=== PATIENT | male | born 2000 | race Caucasian/White ===

== ENCOUNTER 2022-10-17 21:14 | Emergency (ER) | payer BC, SELFPAY ==
[2022-10-17 21:15] VITALS: BP 152/72; PULSE 94; RESP 18; TEMP 36.6; O2SAT 99; BMI 29.5
--- NOTE | 2022-10-17 21:53 | EX.ED.UPPERE ---
HPI History of Present Illness HPI Narrative: Left long finger laceration. Occurred about 4 hours ago. Tetanus up-to-date. Chief Complaint: Laceration Informant: patient and spouse/S.O. Occured/Mechanism Mechanism/Context: Yes injury Onset/Context/Timing Onset: Today and Hours Context: Sudden Onset Timing: Continuous Quality of Pain: Dull Current Severity: Mild Maximum Severity: Mild Associated Symptoms Associated Symptoms: Negative for Parasthesia, Weakness or Loss of Funtion Narrative Narrative: 22-year-old male [id number]. Was using a knife and accidentally cut a flap laceration on the radial side of his left long finger. Denies any other complaints. Occurred about 4 hours ago. Initially went to another emergency department it was taking so long to be seen he came here. Tetanus is up-to-date. Tetanus Immunization: 5-10 years Prior similar symptoms: No Recent Illness/Hospitalization: No PFSH PFSH Medical History no medical history no medical history Home Medications amoxicillin 875 mg-potassium clavulanate 125 mg tablet 875 mg PO Q12H ##7 03/29/15 [Rx Last Taken Unknown] Allergy/AdvReac Type Severity Reaction Status Date / Time No Known Allergies Allergy Verified 10/17/22 21:16 Surgical History no surgical history no surgical history Social History Smoking Status: Never smoker ROS ROS ED ROS Narrative Denies recent illness. Review of Systems ROS Unobtainable: Denies due to encephalopathy Constitutional Constitutional ED: Denies fever(s) Eyes Eyes: Denies blurry vision ENT ENT ED: Denies ear pain Cardiovascular Cardiovascular: Denies chest pain Respiratory/Chest Respiratory/Chest: Denies cough or dyspnea Gastrointestinal Gastrointestinal: Denies abdominal pain Genitourinary Genitourinary ED: Denies dysuria or hematuria Musculoskeletal Musculoskeletal: Denies back pain Integumentary Denies abscess Neurologic Neurologic: Denies headache(s) Psychiatric Psychiatric: Denies anxiety Endocrine Endocrinology: Denies cold intolerance Hematologic/Lymphatic Hematologic/Lymphatic: Denies easy bleeding or easy bruising Allergic/Immunologic Allergic/Immunologic ED: Denies mouth swelling EXAM Physical Exam Narrative Exam Narrative: Well-appearing 22-year-old male. Vital signs stable afebrile. HEENT exam normal. Neck unremarkable. Lungs clear. Heart regular rhythm no murmur. Chest wall nontender. Abdomen soft nontender. Moving all 4 extremities. Neurovascular intact. Specifically left hand there is a V-shaped flap laceration on the proximal phalanx of the left long finger on the radial side. No active bleeding. Will need repaired. He has full flexion extension of the digit. Normal touch sensation and cap refill. There does not appear to be any foreign body, infection or involvement of any neurovascular structures. There is no bone or joint involvement. There does not appear to be any extensor or flexor tendon involvement. Const Vital Signs: 10/17/22 21:15 Temperature 97.8 F Temperature Source Temporal Pulse Rate 94 Respiratory Rate 18 Blood Pressure 152/72 H Blood Pressure Mean 98 Pulse Ox 99 Oxygen Delivery Method Room Air Positive well nourished and well developed; Negative for obese, cachectic, contractures or unkempt General Appearance ED: well developed and NAD; Negative for unkempt, cachectic, contractures, cyanotic or diaphoretic Nutritional Appearance: Negative for cachectic or obese HEENT normocephalic and atraumatic; Negative for trauma or tenderness Eyes EOMs intact bilaterally General Eye ED: Negative for other Neck supple General: Negative for tenderness Lymph Lymphatic: Negative for other Resp normal respiratory effort and clear to auscultation bilaterally Effort and Inspection: Negative for pain with movement Auscultation: Negative for rales, rhonchi or wheezes Cardio regular rate, regular rhythm, S1 normal heart sound, S2 normal heart sound and no murmurs Rate: Negative for bradycardia or tachycardic GI non-tender, non-distended and no masses Inspection: Negative for abdominal distention Auscultation: normoactive bowel sounds Palpation: soft; Negative for tender or guarding Back/Spine no CVA tenderness Extremity normal to inspection and full ROM Extremity Narrative: Except left laceration V-shaped left long finger proximal medic carpal. Full flexion extension. Neurovascular intact. No signs of infection or foreign body. Will need repaired. General Extremety ED: Negative for edema General Extremity: Negative for edema Neuro oriented x3, CN's II-XII intact bilaterally, moves all extremities, no focal motor deficits and no sensory deficits noted Sensorium / Orientation: alert, oriented to person, oriented to place and oriented to time; Negative for orientation impaired, lethargic or stuporous Motor Exam: strength 5/5 throughout Psych mental status grossly normal Appearance: Negative for unkempt Attitude: No agitated Mood & Affect: Negative for depressed, anxious or tearful Skin General Skin Exam: Negative for petechiae Lesions: no lesions Rashes: no rashes Trauma: laceration; Negative for no lacerations or abrasions MDM MDM MDM Narrative Medical decision making narrative: 22-year-old [id number] male with a V-shaped flap laceration of the left long finger that will need repaired. Tetanus up-to-date. Left long finger repaired using 5 simple interrupted 5-0 Ethilon sutures. Proper hemostasis wound closure obtained. Patient tolerated procedure well. Was instructed on wound care suture removal in 10 days return if any signs of infection or problems. Procedures Lacerations Left long finger flap laceration repair:: Length: 0.98 in Depth: Sub Q Shape: Flap Prep: Betadine Laceration repair: Lidocaine, Local, Skin sutures and Wound explored Number of Sutures/Aydin: 5 Suture Information: Ethilon, Simple and 5-0 Comment: Left long finger V-shaped flap laceration. Approximately 2.5 cm in length. LAT and local block with lidocaine. Once proper setting was obtained. Cleaned using iodine. Washed and with saline. Explored. Closed using 5, simple interrupted 5-0 Ethilon sutures. Proper hemostasis wound closure obtained. Patient tolerated procedure well. Instructed on wound care and suture removal in 10 days. Discharge Plan Triage Chief Complaint: Laceration ED Provider: Jim Robledo Dx/Rx/DC Orders Clinical Impression: Finger laceration Instructions: ED Laceration, Hand: All Closures Prescriptions: No Action amoxicillin-pot clavulanate 875 MG tablet 875 mg PO Q12H Qty: 7 0RF Primary Care Provider: Care Physician,Princess Primary Referrals: Gallo Da Silva DO [Non-Staff] - 10 Day for suture removal Activity Restrictions/Additional Instructions: Ice and elevate to decrease pain and swelling for the next 2 days. Motrin and Tylenol for pain. Clean daily with soap and water. Do not allow to soak in any water. If gets wet dry thoroughly. Watch for any signs of infection such as pus, redness, streaks, fever or significant swelling. Is seen return. Stitches out in 10 days. Disposition Disposition: Home, Self Care
[2022-10-17] MEDS: Lidocaine/Epi/Tetracaine 50 ML 1 APPLIC TOPICAL (22:47)
[2022-10-17] MEDS: Lidocaine 1% (20 ml mdv) 20 ML Vial 10 ML INFILT (22:47)
== END 2022-10-17 23:44 | disposition home or self-care (01) ==
PROVIDERS: Emergency Provider Emergency Medicine; Visit Provider Emergency Medicine
DX: S61.213A Laceration without foreign body of left middle finger without damage to nail, initial encounter (principal); W26.0XXA Contact with knife, initial encounter
CPT/HCPCS: 12001; 99283; J7030